=== PATIENT | female | born 1950 | race Asian ===

== ENCOUNTER 2017-08-27 07:30 | Day surgery (SDC) | payer MEDICAID, OTHER ==
[~2017-08-27] VITALS: Ht 156.2 cm; Wt 81.4 kg
[~2017-08-27 07:30] MED LIST: ASPI81TA33 PO; LOSA25TA21 PO; METF500T4 PO; METO100XL PO; ROSU20 PO; SITA50 PO; SODIUM CHLORIDE 0.9% 1,000 ML IV ONE; VITAD1000 PO
[2017-08-27] MEDS ORDERED: SODIUM CHLORIDE 0.9% 1,000 ML IV ONE ×2 (08:00→08:01)
[2017-08-27] MEDS ORDERED: FentaNYL CITRATE-PF 100 MCG/2 ML VIAL ONE (09:34)
[2017-08-27] MEDS ORDERED: MIDAZOLAM HCL 5 MG/ML VIAL ONE (09:34)
[2017-08-27 09:52] LABS: GLUCOMETER DEV NAME(LOC) SDS 5; GLUCOSE,POINT OF CARE 123 MG/DL (70-110)
[2017-08-27] MEDS ORDERED: OXYGEN THERAPY IH SCH (20:00)
== END 2017-08-27 11:25 | disposition home or self-care (01) ==
LOC: SURGERY 07:30
PROVIDERS: ATTEND Specialist
DX: Z09 Encounter for follow-up examination after completed treatment for conditions other than malignant neoplasm (principal); K62.1 Rectal polyp; I10 Essential (primary) hypertension; E11.9 Type 2 diabetes mellitus without complications; E66.3 Overweight; Z87.19 Personal history of other diseases of the digestive system
CPT/HCPCS: 45385; 82962; 88305; C1769; J7030; J2250; J3010

== ENCOUNTER 2017-12-16 11:14 | Inpatient (IN) | payer BC, OTHER ==
[~2017-12-16] VITALS: Ht 157.5 cm; Wt 81.1 kg
[~2017-12-16 11:14] MED LIST changes: -SODIUM CHLORIDE 0.9% 1,000 ML IV ONE
[2017-12-16 11:48] LABS: GLUCOSE,POINT OF CARE 148 MG/DL (70-110)
[2017-12-16] MEDS ORDERED: ONDANSETRON HCL 4 MG/2 ML VIAL IVP ONE (13:30)
[2017-12-16] MEDS ORDERED: MORPHINE SULFATE 4 MG/ML SYRINGE IVP ONE ×2 (13:30→15:00)
[2017-12-16] MEDS ORDERED: MORPHINE SULFATE 2 MG/ML SYRINGE IM ONE (14:15)
[2017-12-16] MEDS ORDERED: ONDANSETRON HCL 4 MG/2 ML VIAL IM ONE (14:15)
[2017-12-16 15:09] LABS: BASOPHILS % (AUTO) 0.3 % (0.0-2.0); EOSINOPHILS % (AUTO) 0.1 % (1.0-6.0); HEMATOCRIT 38.4 % (36-46); HEMOGLOBIN 12.5 g/dL (12.0-16.0); LYMPHOCYTES # (AUTO) 1.6 K/uL (1.0-4.8); LYMPHOCYTES % (AUTO) 14.1 % (22.0-44.0); MEAN CORPUSCULAR HEMOGLOBIN 28.7 pg (26.0-34.0); MEAN CORPUSCULAR HGB CONC 32.6 G/dL (31.0-37.0); MEAN CORPUSCULAR VOLUME 88 fL (80-100); MONOCYTES # (AUTO) 0.7 K/uL (0.1-1.0); MONOCYTES % (AUTO) 6.3 % (2.0-9.0); NEUTROPHILS # (AUTO) 8.9 K/uL (1.8-7.7); NEUTROPHILS % (AUTO) 79.2 % (40.0-70.0); PLATELET COUNT (AUTO) 206 K/uL (150-450); RED BLOOD CELL COUNT(AUTO) 4.37 MIL/uL (4.00-5.20); RED CELL DISTRIBUTION WIDTH 14.9 % (11.5-14.5)
[2017-12-16 15:14] LABS: CALCIUM, TOTAL 9.2 mg/dL (8.8-10.5); CREATININE 1.03 mg/dL (0.60-1.30); POTASSIUM 3.9 mmol/L (3.5-5.1)
[2017-12-16 15:21] LABS: ALBUMIN 3.8 g/dL (3.4-5.0); BILIRUBIN,TOTAL 0.8 mg/dL (0.1-1.0); TOTAL PROTEIN, SERUM 7.9 g/dL (6.4-8.2)
[2017-12-16] MEDS ORDERED: KETOROLAC TROMETHAMINE 30 MG/ML VIAL IVP ONE (16:30)
[2017-12-16 20:17] VITALS: BP 137/68
[2017-12-16] MEDS ORDERED: DEXTROSE 50%-WATER 25 GM/50 ML SYRINGE IVP PRN (21:30)
[2017-12-16] MEDS: HYDROCODONE/ACETAMINOPHEN 5-325 MG TABLET PO PRN (21:49)
[2017-12-16] MEDS: HEPARIN SODIUM,PORCINE 5,000 UNITS/ML VIAL SQ SCH (23:48)
[2017-12-17] VITALS (7 sets, daily range): BP systolic 116–158; BP diastolic 56–77
[2017-12-17] MEDS: INSULIN ASPART 100 UNITS/ML SQ PRN (05:50)
[2017-12-17] MEDS: HYDROCODONE/ACETAMINOPHEN 5-325 MG TABLET PO PRN ×3 (05:51→17:52)
[2017-12-17 06:24] LABS: GLUCOMETER DEV NAME(LOC) 6N 1E; GLUCOSE,POINT OF CARE 147 MG/DL (70-110)
[2017-12-17] MEDS ORDERED: PNEUMOCOCCAL VACCINE POLYVALENT 0.5 ML VIAL [PPSV23] IM ONE (06:45)
[2017-12-17] MEDS ORDERED: ONDANSETRON HCL 4 MG/2 ML VIAL IVP PRN (09:00)
[2017-12-17] MEDS: MetFORMIN HCL 500 MG TABLET PO SCH ×2 (09:10→17:51)
[2017-12-17] MEDS: CHOLECALCIFEROL (VIT D3) 1,000 UNITS TABLET PO SCH (09:10)
[2017-12-17] MEDS: HEPARIN SODIUM,PORCINE 5,000 UNITS/ML VIAL SQ SCH ×2 (09:10→17:51)
[2017-12-17] MEDS: ASPIRIN 81 MG EC TABLET PO SCH (09:11)
[2017-12-17] MEDS: METOPROLOL SUCCINATE 50 MG ER TABLET PO SCH (09:14)
[2017-12-17 11:44] LABS: GLUCOMETER DEV NAME(LOC) 6N 2D; GLUCOSE,POINT OF CARE 189 MG/DL (70-110)
[2017-12-17 17:13] LABS: GLUCOMETER DEV NAME(LOC) 6N 1E; GLUCOSE,POINT OF CARE 177 MG/DL (70-110)
[2017-12-17 17:13] LABS: GLUCOMETER DEV NAME(LOC) 6N 1E; GLUCOSE,POINT OF CARE 105 MG/DL (70-110)
[2017-12-17] MEDS ORDERED: ROSUVASTATIN CALCIUM 20 MG TABLET PO SCH (21:00)
[2017-12-17] MEDS ORDERED: LOSARTAN POTASSIUM 25 MG TABLET PO SCH (21:00)
[2017-12-18] MEDS: HEPARIN SODIUM,PORCINE 5,000 UNITS/ML VIAL SQ SCH ×3 (00:03→14:43)
[2017-12-18 04:52] VITALS: BP 135/69
[2017-12-18] MEDS: METOPROLOL SUCCINATE 50 MG ER TABLET PO SCH (08:25)
[2017-12-18] MEDS: CHOLECALCIFEROL (VIT D3) 1,000 UNITS TABLET PO SCH (08:25)
[2017-12-18] MEDS: MetFORMIN HCL 500 MG TABLET PO SCH ×2 (08:25→18:14)
[2017-12-18] MEDS: ASPIRIN 81 MG EC TABLET PO SCH (08:26)
[2017-12-18] MEDS: HYDROCODONE/ACETAMINOPHEN 5-325 MG TABLET PO PRN (08:26)
[2017-12-18 08:54] VITALS: BP 138/70
[2017-12-18 11:33] LABS: GLUCOMETER DEV NAME(LOC) 6N 1E; GLUCOSE,POINT OF CARE 86 MG/DL (70-110)
[2017-12-18 12:22] VITALS: BP 146/89
[2017-12-18] MEDS ORDERED: LIDOCAINE HCL 1% 10 ML VIAL INJ ONE (14:00)
[2017-12-18] MEDS ORDERED: TRIAMCINOLONE ACETONIDE 40 MG/ML VIAL IM ONE (14:00)
[2017-12-18 15:24] VITALS: BP 137/73
[2017-12-18 15:47] LABS: GLUCOMETER DEV NAME(LOC) 6N 2D; GLUCOSE,POINT OF CARE 128 MG/DL (70-110)
[2017-12-18 15:48] LABS: GLUCOMETER DEV NAME(LOC) 6N 2D; GLUCOSE,POINT OF CARE 121 MG/DL (70-110)
[2017-12-18] MEDS: INSULIN ASPART 100 UNITS/ML SQ PRN (16:40)
[2017-12-18] MEDS ORDERED: HYDR-309 PO (18:20)
[2017-12-18] MEDS ORDERED: DICL4100G TP (18:23)
[2017-12-18 21:49] LABS: GLUCOMETER DEV NAME(LOC) 6N 1E; GLUCOSE,POINT OF CARE 105 MG/DL (70-110)
== END 2017-12-18 19:25 | disposition home or self-care (01) | DRG 558 ==
LOC: EMS 11:15 → 6N 18:53
PROVIDERS: ADMIT Family Medicine; ATTEND Family Medicine
DX: M70.71 Other bursitis of hip, right hip (principal); E11.9 Type 2 diabetes mellitus without complications; E66.9 Obesity, unspecified; E78.00 Pure hypercholesterolemia, unspecified; E78.5 Hyperlipidemia, unspecified; I10 Essential (primary) hypertension; M17.11 Unilateral primary osteoarthritis, right knee; M16.0 Bilateral primary osteoarthritis of hip; M81.0 Age-related osteoporosis without current pathological fracture; Z79.82 Long term (current) use of aspirin; Z79.899 Other long term (current) drug therapy; Y93.89 Activity, other specified; Z68.32 Body mass index [BMI] 32.0-32.9, adult
CPT/HCPCS: 72192; 73502; 82962; 97110; 97161; 97165; 97535; J1644; J1885; J2270; J2405; J3301; J3490

== ENCOUNTER → 2019-08-30 | Outpatient (CLI) | payer MEDICARE, OTHER ==
[~2019-08-30] MED LIST changes: -ASPI81TA33 PO; +ASPI81TA87 PO; +CHOL100018 PO; +DICL4100G TP; +HYDR-309 PO; -LOSA25TA21 PO; +LOSA25TA41 PO; +METF-960 PO; -METF500T4 PO; -ROSU20 PO; +ROSU20TA23 PO; -SITA50 PO; -VITAD1000 PO
== END | disposition home or self-care (01) ==
LOC: RADPV 15:20
PROVIDERS: ATTEND Internal Medicine
DX: M16.0 Bilateral primary osteoarthritis of hip (principal)
CPT/HCPCS: 72170

== ENCOUNTER 2022-07-16 09:24 | Day surgery (SDC) | payer MEDICARE ==
[~2022-07-16] VITALS: Ht 157.5 cm; Wt 76.3 kg
[~2022-07-16 09:24] MED LIST changes: +ALEN70TA65 PO; -CHOL100018 PO; +CHOL25TA4 PO; -DICL4100G TP; +EMPA25TA3 PO; -HYDR-309 PO; +LOSA-382 PO; -LOSA25TA41 PO; +METF-1211 PO; -METF-960 PO; +METO-558 PO; -METO100XL PO; +OS500 PO; -ROSU20TA23 PO; +ROSU20TA73 PO; +SITA100 PO; +SODIUM CHLORIDE 0.9% 1,000 ML IV ONE; +SODIUM CHLORIDE 0.9% 1,000 ML ONE
[2022-07-16 09:46] LABS: COVID AG,FIA SOURCE NASAL SWAB
[2022-07-16 10:41] LABS: GLUCOMETER DEV NAME(LOC) SDS.; GLUCOSE,POINT OF CARE 105 MG/DL (70-110)
[2022-07-16] MEDS ORDERED: IOHEXOL 350 MG/ML 100 ML VIAL ONE (13:03)
[2022-07-16] MEDS ORDERED: SODIUM CHLORIDE 0.9% 100 ML ONE (13:04)
== END 2022-07-16 15:10 | disposition home or self-care (01) ==
LOC: SDS 09:24
PROVIDERS: ATTEND Radiology Diagnostic Radiology
DX: R80.9 Proteinuria, unspecified (principal); Z53.8 Procedure and treatment not carried out for other reasons; N20.0 Calculus of kidney; E78.00 Pure hypercholesterolemia, unspecified; M19.90 Unspecified osteoarthritis, unspecified site; K80.20 Calculus of gallbladder without cholecystitis without obstruction; Z20.822 Contact with and (suspected) exposure to COVID-19; Z79.899 Other long term (current) drug therapy; Z98.890 Other specified postprocedural states
CPT/HCPCS: 74177; 87426; 82962; Q9967; J7030; J7050; C9803

== ENCOUNTER 2022-07-25 11:23 | Day surgery (SDC) | payer MEDICARE ==
[~2022-07-25] VITALS: Ht 157.5 cm; Wt 76.3 kg
[~2022-07-25 11:23] MED LIST changes: -SODIUM CHLORIDE 0.9% 1,000 ML IV ONE; -SODIUM CHLORIDE 0.9% 1,000 ML ONE
[2022-07-25 12:02] LABS: COVID AG,FIA SOURCE NASOPHARYNGEAL
[2022-07-25] MEDS ORDERED: SODIUM CHLORIDE 0.9% 1,000 ML IV ONE (12:30)
[2022-07-25 12:36] LABS: CALCIUM, TOTAL 9.5 mg/dL (8.8-10.5); CREATININE 1.29 mg/dL (0.60-1.30)
[2022-07-25 12:42] LABS: BILIRUBIN,TOTAL 0.9 mg/dL (0.1-1.0); TOTAL PROTEIN, SERUM 8.8 g/dL (6.4-8.2)
[2022-07-25 12:51] LABS: INR 0.9 (0.9-1.1); PROTHROMBIN TIME 10.1 SEC (9.4-11.6)
[2022-07-25 12:53] LABS: BASOPHILS % (AUTO) 0.5 % (0.0-2.0); EOSINOPHILS % (AUTO) 1.8 % (1.0-6.0); HEMATOCRIT 42.1 % (36-46); HEMOGLOBIN 13.5 g/dL (12.0-16.0); LYMPHOCYTES # (AUTO) 2.7 K/uL (1.0-4.8); LYMPHOCYTES % (AUTO) 34.4 % (22.0-44.0); MEAN CORPUSCULAR HEMOGLOBIN 27.6 pg (26.0-34.0); MEAN CORPUSCULAR HGB CONC 32.1 G/dL (31.0-37.0); MEAN CORPUSCULAR VOLUME 86 fL (80-100); MONOCYTES # (AUTO) 0.4 K/uL (0.1-1.0); MONOCYTES % (AUTO) 5.3 % (2.0-9.0); NEUTROPHILS # (AUTO) 4.5 K/uL (1.8-7.7); PLATELET COUNT (AUTO) 191 K/uL (150-450); RED CELL DISTRIBUTION WIDTH 16.8 % (11.5-14.5)
[2022-07-25 13:01] LABS: GLUCOMETER DEV NAME(LOC) SDS.; GLUCOSE,POINT OF CARE 107 MG/DL (70-110)
[2022-07-25] MEDS ORDERED: FentaNYL CITRATE PF 100 MCG/2 ML VIAL ONE (13:08)
[2022-07-25] MEDS ORDERED: NALOXONE HCL 0.4 MG/ML VIAL ONE (13:09)
[2022-07-25] MEDS ORDERED: MIDAZOLAM HCL 2 MG/2 ML VIAL ONE (13:09)
[2022-07-25] MEDS ORDERED: GELATIN SPONGE,ABSORBABLE 12-7 MM TP ONE (13:09)
[2022-07-25] MEDS ORDERED: FLUMAZENIL 0.1 MG/ML 5 ML VIAL IVP ONE (13:09)
[2022-07-25] MEDS ORDERED: LABETALOL HCL 5 MG/ML 20 ML VIAL IVP ONE ×2 (14:15→16:00)
[2022-07-25] MEDS ORDERED: LIDOCAINE/PF 1% 5 ML VIAL ONE (14:52)
[2022-07-25] MEDS ORDERED: MIDAZOLAM HCL 2 MG/2 ML VIAL IVP ONE ×2 (16:00)
[2022-07-25] MEDS ORDERED: FentaNYL CITRATE PF 100 MCG/2 ML VIAL IVP ONE ×3 (16:00)
== END 2022-07-25 19:35 | disposition home or self-care (01) ==
LOC: SURGERY 11:23
PROVIDERS: ATTEND Radiology Diagnostic Radiology
DX: R80.9 Proteinuria, unspecified (principal); Z79.01 Long term (current) use of anticoagulants; Z79.899 Other long term (current) drug therapy; Z20.822 Contact with and (suspected) exposure to COVID-19; E11.9 Type 2 diabetes mellitus without complications
CPT/HCPCS: 50200; 80053; 82962; 85025; 85610; 85730; 36415; 88300; 99152; 77012; 87426; J3010; J3490; J2001; J2250; J7030; C9803; J2310